=== PATIENT | female | born 1990 | race Caucasian/White ===

== ENCOUNTER → 2017-07-10 18:13 | Outpatient (CLI) | payer MEDICAID, SELFPAY ==
[2017-07-10 21:00] LABS: Chlamydia Trachomatis by PCR Negative (Negative); Neisserai gonorrhoeae by PCR Negative (Negative); Probe Check PASS; Sample Adequacy Control PASS; Specimen Processing Control PASS
[2017-07-18 11:13] LABS: HPV HC, High Risk Negative (Negative)
[2017-07-18 11:14] LABS: HPV Reflexed? YES, CHARGE PATIENT
== END ==
PROVIDERS: Visit Provider Obstetrics & Gynecology
DX: Z12.4 Encounter for screening for malignant neoplasm of cervix (principal); Z11.3 Encounter for screening for infections with a predominantly sexual mode of transmission
CPT/HCPCS: 87491; 87591; 87624; 88175; G0145

== ENCOUNTER → 2017-07-24 14:48 | Outpatient (CLI) | payer MEDICAID, SELFPAY ==
[2017-07-24 15:37] LABS: Color, Urine Yellow (Yellow); Glucose, Dipstick Normal (Normal); Ketone-Dipstick Negative (Negative); Leukocyte Esterase-Dipstick 500 /ul (Negative); Nitrite-Dipstick Negative (Negative); Occult Blood-Urine Negative /ul (Negative); Protein-Dipstick Negative (Negative); Urine Bilirubin Dipstick Negative (Negative); Urine Clarity Cloudy (Clear); Urine Urobilinogen Normal (Normal); Urine pH 6.5 (5.0 - 8.0)
[2017-07-24 16:00] LABS: Absolute Neutrophil Count 6.3 X10^3/uL (2.0-7.7); Basophil# 0.01 X10^3/uL; Basophil% 0.1 % (0-1); Eosinophil# 0.24 X10^3/uL; Eosinophils% 2.7 % (0-5); Hematocrit 34.3 % (37-47); Hemoglobin 11.8 g/dl (12.0-15.0); Lymphocyte % 20.5 % (19-41); Mean Corp Hgb Conc 34.4 g/gl (32-36); Mean Platelet Vol. 9.4 fl (6.2-12.0); Monocyte# 0.46 X10^3/uL; Monocyte% 5.2 % (0-10); Neutrophil # 6.26 X10^3/uL (2.7-7.7); Neutrophil % 71.4 % (47-70); Platelet Count 222 K/mm3 (150-450); RBC Distribution Width CV 12.4 % (11.6-14.6); RBC Distribution Width SD 40.3 fl (35.1-43.9); Red Blood Count 3.81 M/mm3 (4.2-5.4); White Blood Count 8.8 K/mm3 (4.4-11.0)
[2017-07-24 16:03] LABS: POSITIVE COUNT NO; POSITIVE DIFFERENTIAL NO; POSITIVE MORPHOLOGY NO
[2017-07-24 16:12] LABS: Thyroid Stim Hormone (TSH) 1.27 uIU/mL (0.358-3.74)
[2017-07-24 16:34] LABS: Amphetamine Urine VISTA NEGATIVE (<1000 ng/mL); Barbiturate Urine VISTA NEGATIVE (< 200 ng/mL); Benzodiazepine Urine VISTA NEGATIVE (< 200 ng/mL); Cocaine Urine VISTA NEGATIVE (< 300 ng/mL); Ecstacy Urine VISTA NEGATIVE (< 500 ng/mL); Methadone Urine VISTA NEGATIVE (< 300 ng/mL); PCP Urine VISTA NEGATIVE (< 25 ng/mL); THC Urine VISTA NEGATIVE (< 50 ng/mL); Vista UDS pH Range 6
[2017-07-24 16:37] LABS: COTININE Drug Screen Positive (<200 ng/mL)
[2017-07-24 16:58] LABS: HIV - WCH Non-Reactive (Nonreactive); Rubella IgG 101.7 IU/mL
[2017-07-27 14:07] LABS: HCV Quant. RNA PCR 124000 IU/mL (.)
[2017-07-27 14:52] LABS: HCV log 10 5.093 (.); HEPATITIS B SURFACE AG Negative (Negative); Hep C Antibodies >11.0 s/co ratio (0.0-0.9)
[2017-07-31 03:11] LABS: Prenatal RPR NONREACTIVE (NONREACTIVE)
== END ==
PROVIDERS: Visit Provider Obstetrics & Gynecology
DX: Z34.81 Encounter for supervision of other normal pregnancy, first trimester (principal)
CPT/HCPCS: 36415; 80307; 81002; 84443; 85025; 86703; 86762; 86803; 87340; 87522

== ENCOUNTER → 2017-10-15 14:06 | Outpatient (CLI) | payer MEDICAID, SELFPAY ==
[2017-10-15 15:23] LABS: Hematocrit 31.7 % (37-47); Mean Corp Hgb Conc 34.7 g/gl (32-36); Mean Corpuscular Hgb 32.5 pg (27.0-32.0); Mean Corpuscular Volume 93.8 fL (81-99); Platelet Count 218 K/mm3 (150-450); RBC Distribution Width CV 12.4 % (11.6-14.6); Red Blood Count 3.38 M/mm3 (4.2-5.4); White Blood Count 10.2 K/mm3 (4.4-11.0)
[2017-10-15 15:26] LABS: Scan Indicated on CBC? Y/N NO
[2017-10-15 15:37] LABS: Glucose Challenge Gest 1H 50g 85 mg/dL (70-140)
== END ==
PROVIDERS: Visit Provider Obstetrics & Gynecology
DX: Z36.83 Encounter for fetal screening for congenital cardiac abnormalities (principal)
CPT/HCPCS: 36415; 82950; 85027

== ENCOUNTER → 2017-12-29 16:21 | Outpatient (CLI) | payer MEDICAID, SELFPAY ==
[2017-12-29 18:37] LABS: Group B Strep DNA By PCR Negative (Negative); Internal Control PASS; Probe Check PASS; Specimen Processing Control PASS
== END ==
PROVIDERS: Visit Provider Obstetrics & Gynecology
DX: Z36.85 Encounter for antenatal screening for Streptococcus B (principal)
CPT/HCPCS: 87081; 87653

== ENCOUNTER 2018-01-03 17:30 | Outpatient (CLI) | payer MEDICAID, SELFPAY ==
[2018-01-03 18:09] VITALS: BMI 25.1
--- NOTE | 2018-01-04 10:54 | OB.TRI.NOTE ---
History of Present Illness Was patient seen by the physician?: No Reason For Visit: R/O LABOR Date of Service: 01/03/18 Final ROLA: 01/08/18 Final ROLA Source: US <20 weeks Gestational age: 39 Weeks and 2 Days History of Present Illness: 39+ week intrauterine presents with some contractions to rule out labor. care remarkable for bipolar disorder, cutting disorder, known hepatitis C. Allergies azithromycin Allergy (Verified 04/19/14 10:02) Rash vancomycin Allergy (Verified 04/19/14 10:02) Rash also gets red man syndrome NST - FHR Rate Baby A NST Reactive:: Yes FHR Category:: Category I Impression/Plan 39+ week intrauterine with false labor. No change in cervix after monitoring for several hours. Released to home with routine follow-up and care. To return if contractions increase in frequency or intensity.
== END 2018-01-03 19:00 | disposition home or self-care (01) ==
LOC: WPOUT 17:54 → WP 17:55
PROVIDERS: Visit Provider Obstetrics & Gynecology
DX: O47.1 False labor at or after 37 completed weeks of gestation (principal); Z3A.39 39 weeks gestation of pregnancy
CPT/HCPCS: 59025; 59050; 99218; G0378

== ENCOUNTER 2018-01-13 07:55 | Inpatient (IN) | payer MEDICAID, SELFPAY ==
[2018-01-13 08:05] VITALS: BMI 24.8
[2018-01-13] MEDS: Lactated Ringers 1,000 ML 50 ML IV ×2 (08:25→11:33)
[2018-01-13 08:46] LABS: Hematocrit 34.9 % (37-47); Mean Corp Hgb Conc 34.4 g/gl (32-36); Mean Corpuscular Hgb 32.3 pg (27.0-32.0); Mean Corpuscular Volume 94.1 fL (81-99); Mean Platelet Vol. 10.2 fl (6.2-12.0); Platelet Count 236 K/mm3 (150-450); RBC Distribution Width SD 42.5 fl (35.1-43.9); Red Blood Count 3.71 M/mm3 (4.2-5.4); Scan Indicated on CBC? Y/N NO; White Blood Count 9.4 K/mm3 (4.4-11.0)
[2018-01-13] MEDS: Oxytocin 30 units/NS 500 ml 30 UNITS/500 ML IV.SOLN IV (09:23)
--- NOTE | 2018-01-13 12:15 | PCM.PN.OB ---
Subjective: Feeling contractions more strongly. Objective: Afeb VSS - Physical Exam Abdomen: Gravid, Appropriate for Gestational Age Extremities: No edema Psych/Mental Status: Normal Affect Comment: CE 5cm/50%/-2 Weight: 149 lb 7.574 oz Body Mass Index (BMI) 24.8 Intake and Output for Last 24 Hours 01/11/18 01/12/18 01/13/18 23:59 23:59 23:59 Output Total 700 / 700 Balance -700 / -700 Laboratory Tests Past 24 Hrs 01/13/18 01/13/18 08:25 08:25 WBC 9.4 RBC 3.71 L Hgb 12.0 Hct 34.9 L MCV 94.1 MCH 32.3 H MCHC 34.4 RDW 13.0 RDW Differential 42.5 Plt Count 236 MPV 10.2 Blood Type A POSITIVE Antibody Screen NEGATIVE Medical Necessity - Tobacco Use Smoking Status: Current every day smoker Assessment/Plan Making progress in labor. FHR tracing reassuring. Can have epidural if desires.
[2018-01-13] MEDS: fentaNYL-bupivacaine (epidural) 100 ML BAG EPIDURAL (12:56)
[2018-01-13] MEDS: Oxytocin 30 units/NS 500 ml 30 UNITS/500 ML IV.SOLN 334 UNITS IV (15:20)
[2018-01-13] MEDS: Oxytocin 30 units/NS 500 ml 30 UNITS/500 ML IV.SOLN 167 UNITS IV (15:50)
--- NOTE | 2018-01-13 17:11 | PCM.OB.VAG ---
Vaginal Delivery Maternal Presentation: Elective Induction 40w5d ega admitted for induction of labor Method of Induction: Pitocin Amniotic Membrane Rupture Type: Artificial Rupture of Membrane time: 0830 Amniotic Fluid Description: Clear Final ROLA: 01/08/18 Final ROLA Source: US <20 weeks Gestational age: 40 Weeks and 5 Days Date of Procedure: 01/13/18 Pre-Operative Diagnosis: Labor Post-Operative Diagnosis: same Surgery/ Procedure Performed: Spontaneous Vaginal Delivery Anesthesiologist: Kyle Raymundo Type of Anesthesia: Epidural Description of Procedure: Progressed to fully dilated then pushed over two contractions to deliver a live male . Delayed cord clamping was employed. At delivery the nose and mouth were suctioned. The cord was clamped and cut and baby placed on mom's chest for skin to skin. APGARS were 9/9. The placenta was delivered spontaeously intact with a centrally located 3VC. The uterus contracted well. Inspection revealed an intact cervix, upper and lower vagina and perineum. Presentation: Vertex Placental Delivery Description: Spontaneous Placenta Disposition: [facility] Percentage of Placenta Abruption: 0 Cord Vessel Description: 3 Vessels Nuchal Cord Compression: Without compression Cord Entanglement: Around neck x 1, loose Drain: Mcgraw to straight drain Estimated Blood Loss: 300cc Infant A gender: Male (1 minute): 9 (5 minute): 9 Episiotomy Description: None Laceration: None Medications given after delivery: IV Pitocin Complications: None
--- NOTE | 2018-01-13 17:18 | DCINST_ITS ---
Discharge Diet: No Restrictions Discharge Activity: Return to Normal Activity, May Drive, May Shower Return to work on:: 03/01/18 May shower in (days): 0 May resume sexual activity in: 4-6 weeks Call your doctor if your incision/area has: Sudden Increased Bleeding, Increased Pain/ Swelling, Foul Smelling Discharge Call your doctor if you observe: Fever of 101 or Higher, Inability to urinate, Inability to have a bowel movement, Using more than one pad per hour, Shortness of breath, Fainting spells, Chest pain, Calf discomfort, Uncontrolled pain Cleanse incision/area with: Soap & Water Additional Instructions: If you experience any of the following, contact your healthcare provider. * Bleeding that soaks a pad every hour for 2 hours * Fever 100.4 or higher * Unrelieved incision or abdominal pain * Swelling, redness, discharge or bleeding from your incision or episiotomy site * Your incision begins to separate * Problems urinating (including inability to urinate or burning while urinating). * Visual changes * Severe headache * Flu-like symptoms * Pain or redness in one of both of your breasts * Pain, warmth, tenderness or swelling in your legs, especially the calf area * Frequent nausea and vomiting * Symptoms of depression or anxiety If you experience any of the following, call 911 or go to the nearest Emergency Room. * Chest pain * Problems breathing * Seizure activity * Partial or complete paralysis of a body part, slurred speech, weakness or drooping of the face, or a sudden inability to walk or hold your balance Allergies/Adverse Reactions: Allergies azithromycin Allergy (Verified 01/13/18 08:07) Rash ceftriaxone [From Rocephin] Allergy (Verified 01/13/18 08:07) Hives vancomycin Allergy (Verified 01/13/18 08:07) Rash also gets red man syndrome Medications to take at Discharge Ferrous Gluconate 324 mg PO DAILY@1200 tablet 01/13/18 Ferrous Gluconate 325 mg PO DAILY 01/13/18 Folic Acid 1 mg PO DAILY 01/13/18 Ibuprofen 600 mg PO 4X/DAY #30 tab 01/13/18 Vits [Prenatabs FA ] 1 tablet PO DAILY@1200 01/13/18 The following prescriptions were given: Ibuprofen 600 mg PO 4X/DAY #30 tab Please Follow Up With: Alessio No MD When: 6 weeks Primary Care Physician: Care Physician,No Primary [Primary Care Provider] - Test Results: Test results from this visit will be discussed in further detail at your follow- up appointment, if applicable. Proposed Discharge Date: 01/15/18
[2018-01-13 17:57] VITALS: BP 107/66; PULSE 88; RESP 16; TEMP 36.8
[2018-01-13] MEDS: Acetaminophen 500 MG Tablet 1000 MG PO (19:54)
[2018-01-13 20:38] VITALS: BP 107/70; PULSE 89; RESP 16; TEMP 36.8; O2SAT 98
[2018-01-13] MEDS: Ibuprofen 600 MG Tablet PO (21:58)
[2018-01-14 00:20] VITALS: BP 102/6; PULSE 87; RESP 16; TEMP 36.4; O2SAT 98
--- NOTE | 2018-01-14 00:37 | NURSING ---
Patient reports passing clot bigger than an egg and flushed it down the toilet. Patient's vital signs within normal limits, bleeding appropriate and fundus firm and -1. Patient educated to let nurse see clot before flushing next time. Patient up to bathroom again and did not pass clot or have excessive bleeding.
[2018-01-14] MEDS: Acetaminophen 500 MG Tablet 1000 MG PO ×2 (04:13→12:09)
[2018-01-14 04:15] VITALS: BP 109/68; PULSE 87; RESP 16; TEMP 36.4; O2SAT 98
[2018-01-14 08:11] LABS: Hematocrit 33.2 % (37-47); Hemoglobin 11.5 g/dl (12.0-15.0); Mean Corp Hgb Conc 34.6 g/gl (32-36); Mean Corpuscular Hgb 32.8 pg (27.0-32.0); Mean Corpuscular Volume 94.6 fL (81-99); Platelet Count 217 K/mm3 (150-450); RBC Distribution Width CV 12.9 % (11.6-14.6); RBC Distribution Width SD 42.5 fl (35.1-43.9); Red Blood Count 3.51 M/mm3 (4.2-5.4); White Blood Count 9.2 K/mm3 (4.4-11.0)
[2018-01-14 08:14] LABS: Scan Indicated on CBC? Y/N NO
--- NOTE | 2018-01-14 08:32 | PCM.PN.OB ---
Subjective: Some cramping. Bleeding light. Bottle feeding. Objective: Afeb VSS Hgb stable PP day#1. - Physical Exam General: Alert, Oriented x3, Cooperative, No apparent distress Lungs: Clear to auscultation, Normal air movement Cardiovascular: Regular rate, Regular Rhythm Abdomen: Soft, Non Tender, Non-Distended, - - Fundus firm nontender Extremities: No edema Skin: No rashes Neurological: Neuro grossly intact Psych/Mental Status: Normal Affect Comment: Lochia light Vital Signs Temp Pulse Resp BP Pulse Ox 97.5 F L 87 16 109/68 98 01/14/18 04:15 01/14/18 04:15 01/14/18 04:15 01/14/18 04:15 01/14/18 04:15 Oxygen Delivery Method Room Air Weight: 149 lb 7.574 oz Body Mass Index (BMI) 24.8 Intake and Output for Last 24 Hours 01/12/18 01/13/18 01/14/18 23:59 23:59 23:59 Intake Total 3462 / 3462 Output Total 2100 / 2100 Balance 1362 / 1362 Laboratory Tests Past 24 Hrs 01/13/18 01/13/18 01/14/18 08:25 08:25 07:55 WBC 9.4 9.2 RBC 3.71 L 3.51 L Hgb 12.0 11.5 L Hct 34.9 L 33.2 L MCV 94.1 94.6 MCH 32.3 H 32.8 H MCHC 34.4 34.6 RDW 13.0 12.9 RDW Differential 42.5 42.5 Plt Count 236 217 MPV 10.2 10.0 Blood Type A POSITIVE Antibody Screen NEGATIVE Medical Necessity - Tobacco Use Smoking Status: Current every day smoker Assessment/Plan Doing well on PP day#1. Continue routine PP care. Anticipate discharge home tomorrow.
[2018-01-14] MEDS: Ibuprofen 600 MG Tablet PO ×2 (08:35→19:48)
[2018-01-14] MEDS: Ferrous Gluconate 324 MG Tablet PO (08:36)
[2018-01-14] MEDS: Folic Acid 1 MG Tablet PO (08:36)
[2018-01-14 09:43] VITALS: BP 106/75; PULSE 91; RESP 20; TEMP 36.5; O2SAT 100
[2018-01-14] MEDS: Prenatal Vits Tablet 1 TABLET PO (11:43)
[2018-01-14 11:49] VITALS: BP 117/83; PULSE 74; RESP 20; TEMP 36.3; O2SAT 99
[2018-01-14 15:41] VITALS: BP 117/83; PULSE 74; RESP 20; TEMP 36.3; O2SAT 99
[2018-01-14 19:55] VITALS: BP 109/73; PULSE 79; RESP 16; TEMP 36.8; O2SAT 95
[2018-01-15 02:10] VITALS: BP 106/73; PULSE 88; RESP 18; TEMP 36.9; O2SAT 97
--- NOTE | 2018-01-15 08:02 | PCM.PN.OB ---
Subjective: No sp[eicifc complaints. Bleeding light. Objective: Afeb VSS - Physical Exam General: Alert, Oriented x3, Cooperative, No apparent distress Lungs: Clear to auscultation, Normal air movement Cardiovascular: Regular rate, Regular Rhythm Abdomen: Soft, Non Tender, Non-Distended Extremities: No edema Skin: No rashes Psych/Mental Status: Normal Affect Comment: Lochia light Vital Signs Temp Pulse Resp BP Pulse Ox 98.4 F 88 18 106/73 97 01/15/18 02:10 01/15/18 02:10 01/15/18 02:10 01/15/18 02:10 01/15/18 02:10 Oxygen Delivery Method Room Air Weight: 149 lb 7.574 oz Body Mass Index (BMI) 24.8 Intake and Output for Last 24 Hours 01/13/18 01/14/18 01/15/18 23:59 23:59 23:59 Intake Total 3462 / 3462 Output Total 2100 / 2100 Balance 1362 / 1362 Laboratory Tests Past 24 Hrs 01/14/18 07:55 WBC 9.2 RBC 3.51 L Hgb 11.5 L Hct 33.2 L MCV 94.6 MCH 32.8 H MCHC 34.6 RDW 12.9 RDW Differential 42.5 Plt Count 217 MPV 10.0 Medical Necessity - Tobacco Use Smoking Status: Current every day smoker Assessment/Plan Doing well on PP day#2. Cleared for discharge home today. Home going instructions and warnings given.
--- NOTE | 2018-01-15 08:03 | PCM.DC.SUM ---
Discharge Date and Diagnosis Date of Admission: 01/13/18 Date of Discharge: 01/15/18 - Primary Discharge Diagnosis S/P Hospital Course and Treatment Operations: None Procedures: - - Pitocin induction of labor, epidural, Summary of Care Provided: The patient is a 27 year old F [admitted for induction of labor at 40w5d ega. Progressed to FD pushed for a short time to deliver a live without complication. Discharged home on PP day#2.] - Physical Exam Vital Signs Temp Pulse Resp BP Pulse Ox 98.4 F 88 18 106/73 97 01/15/18 02:10 01/15/18 02:10 01/15/18 02:10 01/15/18 02:10 01/15/18 02:10 Oxygen Delivery Method Room Air Weight: 149 lb 7.574 oz Body Mass Index (BMI) 24.8 Intake and Output for Last 24 Hours 01/13/18 01/14/18 01/15/18 23:59 23:59 23:59 Intake Total 3462 / 3462 Output Total 2100 / 2100 Balance 1362 / 1362 Laboratory Tests Past 24 Hrs 01/14/18 07:55 WBC 9.2 RBC 3.51 L Hgb 11.5 L Hct 33.2 L MCV 94.6 MCH 32.8 H MCHC 34.6 RDW 12.9 RDW Differential 42.5 Plt Count 217 MPV 10.0 Discharge Diet: No Restrictions Discharge Activity: Return to Normal Activity, May Drive, May Shower Return to work on:: 03/01/18 May shower in (days): 0 May resume sexual activity in: 4-6 weeks Call your doctor if your incision/area has: Sudden Increased Bleeding, Increased Pain/ Swelling, Foul Smelling Discharge Call your doctor if you observe: Fever of 101 or Higher, Inability to urinate, Inability to have a bowel movement, Using more than one pad per hour, Shortness of breath, Fainting spells, Chest pain, Calf discomfort, Uncontrolled pain Cleanse incision/area with: Soap & Water Home Medications: Medications to take at Discharge Ferrous Gluconate 324 mg PO DAILY@1200 tablet 01/13/18 Ferrous Gluconate 325 mg PO DAILY 01/13/18 Folic Acid 1 mg PO DAILY 01/13/18 Ibuprofen 600 mg PO 4X/DAY #30 tab 01/13/18 Vits [Prenatabs FA ] 1 tablet PO DAILY@1200 01/13/18 Following Prescrptions Were Given to Patient: Ibuprofen 600 mg PO 4X/DAY #30 tab Primary Care Physician: Care Physician,No Primary [Primary Care Provider] - Please Follow Up With: Alessio No MD When: 6 weeks Disposition: Home Minutes spent on discharge:: 15 Patient Condition:: Good Medical Necessity - Tobacco Use Smoking Status: Current every day smoker Meaningful Use Info Meaningful Use Diagnoses (Choose all that apply): None applicable
[2018-01-15 08:27] VITALS: BP 115/74; PULSE 101; RESP 16; TEMP 36.9; O2SAT 97
[2018-01-15] MEDS: Acetaminophen 500 MG Tablet 1000 MG PO (09:52)
[2018-01-15] MEDS: Folic Acid 1 MG Tablet PO (09:52)
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
--- NOTE | 2018-01-15 13:40 | CASEMGMT ---
Social Work Labor and Delivery Unit Call to [facility] at [phone] and spoke with Kiah in the intake department. Report to Kiah about of baby, informing Kiah of said agency being otherwise involved with this family. Brief maternal and histories provided, including reason for social work referral in the hospital and due to potential risk factors/safety issues for this family a referral being made to children services to assure that said agency aware of going home to community today. Reported that MOB is not in any current treatment for mental health but reports likely intent to start family counseling. Reported that MOB had late care. Reported that MOB did have a negative drug screen this (a strength present for this family). Reported that FOB did transport MOB and baby home today and that MOB stating cleared this with the malt roaster. Kiah will report information provided and let ongoing worker know of call by this rewriter. No other services requested or indicated for this family. -SHANTANU García, VP DIGITAL MARKETING
== END 2018-01-15 12:30 | disposition home or self-care (01) | DRG 560 ==
PROVIDERS: Admitting Provider Obstetrics & Gynecology; Referring Provider Obstetrics & Gynecology; Visit Provider Obstetrics & Gynecology
DX: O48.0 Post-term pregnancy (principal); Z3A.40 40 weeks gestation of pregnancy; O99.02 Anemia complicating childbirth; O99.324 Drug use complicating childbirth; F11.90 Opioid use, unspecified, uncomplicated; D51.9 Vitamin B12 deficiency anemia, unspecified; O98.42 Viral hepatitis complicating childbirth; B18.2 Chronic viral hepatitis C; O99.334 Smoking (tobacco) complicating childbirth; O69.81X0 Labor and delivery complicated by cord around neck, without compression, not applicable or unspecified; Z37.0 Single live birth
CPT/HCPCS: 59025; 59050; 85027; 86850; 86900; 99218; J7120; G0378

== ENCOUNTER → 2018-04-16 12:10 | Outpatient (CLI) | payer MEDICAID, SELFPAY | PROVIDERS: Referring Provider Obstetrics & Gynecology; Visit Provider Obstetrics & Gynecology | DX: Z53.9 Procedure and treatment not carried out, unspecified reason (principal) ==

== ENCOUNTER → 2018-10-07 | Outpatient (CLI) | payer MEDICAID, SELFPAY ==
[2018-10-07 18:58] LABS: Chlamydia Trachomatis by PCR Negative (Negative); Neisserai gonorrhoeae by PCR Negative (Negative); Probe Check PASS; Sample Adequacy Control PASS; Specimen Processing Control PASS
== END | disposition home or self-care (01) ==
LOC: LABSPEC 15:20
PROVIDERS: Visit Provider Obstetrics & Gynecology
DX: Z11.3 Encounter for screening for infections with a predominantly sexual mode of transmission (principal)
CPT/HCPCS: 87491; 87591

== ENCOUNTER → 2018-10-14 | Outpatient (CLI) | payer MEDICAID, SELFPAY ==
[2018-10-14 17:17] LABS: Absolute Lymphocyte Count 2.07 X10^3/uL (0.83-4.51); Absolute Neutrophil Count 7.1 X10^3/uL (2.0-7.7); Basophil# 0.02 X10^3/uL; Basophil% 0.2 % (0-1); Eosinophil# 0.25 X10^3/uL; Eosinophils% 2.5 % (0-5); Hematocrit 34.4 % (37-47); Hemoglobin 11.8 g/dL (12.0-15.0); Lymphocyte # 2.07 X10^3/ul (4.0); Lymphocyte % 20.8 % (19-41); Mean Corp Hgb Conc 34.3 g/dL (32-36); Mean Corpuscular Volume 93.2 fL (81-99); Mean Platelet Vol. 9.5 fl (6.2-12.0); Monocyte# 0.47 X10^3/uL; Monocyte% 4.7 % (0-10); NRBC Flagged by Analyzer 0 % (0-5); Neutrophil % 71.4 % (47-70); Platelet Count 231 K/mm3 (150-450); RBC Distribution Width CV 12.1 % (11.6-14.6); RBC Distribution Width SD 40.8 fl (35.1-43.9); Red Blood Count 3.69 M/mm3 (4.2-5.4)
[2018-10-14 17:42] LABS: Amphetamine Urine VISTA NEGATIVE (<1000 ng/mL); Barbiturate Urine VISTA NEGATIVE (< 200 ng/mL); Benzodiazepine Urine VISTA NEGATIVE (< 200 ng/mL); Cocaine Urine VISTA NEGATIVE (< 300 ng/mL); Ecstacy Urine VISTA NEGATIVE (< 500 ng/mL); Methadone Urine VISTA NEGATIVE (< 300 ng/mL); PCP Urine VISTA NEGATIVE (< 25 ng/mL); THC Urine VISTA NEGATIVE (< 50 ng/mL); Vista UDS pH Range 6
[2018-10-14 17:52] LABS: Color, Urine Yellow (Yellow); Glucose, Dipstick Normal (Normal); Ketone-Dipstick Negative (Negative); Leukocyte Esterase-Dipstick Negative /ul (Negative); Nitrite-Dipstick Negative (Negative); Occult Blood-Urine Negative /ul (Negative); Protein-Dipstick Negative (Negative); Specific Gravity, Urine 1.015 (1.002-1.030); Urine Bilirubin Dipstick Negative (Negative); Urine Clarity Clear (Clear); Urine Urobilinogen Normal (Normal)
[2018-10-14 18:01] LABS: Thyroid Stim Hormone (TSH) 1.92 uIU/mL (0.358-3.74)
[2018-10-15 10:12] LABS: HIV - WCH Non-Reactive (Nonreactive); Hepatitis B Surface Antigen Non-Reactive (Nonreactive); Rubella IgG 90.8 IU/mL
[2018-10-15 10:26] LABS: Hepatitis C Antibody REACTIVE (Nonreactive)
[2018-10-16 09:27] LABS: Prenatal RPR NONREACTIVE (NONREACTIVE)
== END | disposition home or self-care (01) ==
LOC: WOBLAB 16:42
PROVIDERS: Visit Provider Obstetrics & Gynecology
DX: Z34.82 Encounter for supervision of other normal pregnancy, second trimester (principal)
CPT/HCPCS: 36415; 80307; 81002; 84443; 85025; 86703; 86762; 86803; 87340

== ENCOUNTER → 2018-10-19 | Outpatient (CLI) | payer MEDICAID, SELFPAY | END | disposition home or self-care (01) | PROVIDERS: Visit Provider Obstetrics & Gynecology | DX: B18.2 Chronic viral hepatitis C (principal) ==

== ENCOUNTER 2020-08-24 13:30 | Emergency (ER) | payer MEDICAID, SELFPAY ==
[2020-08-24 13:31] VITALS: BP 147/74; PULSE 106; RESP 16; TEMP 36.3; O2SAT 97; BMI 25.0
--- NOTE | 2020-08-24 13:45 | RAD_ITS ---
STUDY: X-RAY - LEFT FOOT CLINICAL: Female, 30 years old. STEPPED ON NAIL TECHNIQUE: 3 view(s) of the foot. COMPARISON: None. FINDINGS: Normal talus, calcaneus, and tarsal bones. Normal visualized subtalar, talonavicular, calcaneocuboid, tarsal and tarsometatarsal articulations. Normal metatarsi. Normal metatarsophalangeal joint of the great toe. Normal tibial and fibular sesamoid bones. Normal interphalangeal joint of the great toe. Normal phalanges of the great toe. Normal second through fifth metatarsophalangeal joints. Normal interphalangeal joints and phalanges of the lesser toes. The soft tissue structures are unremarkable. RAD/Foot min 3 Views IMPRESSION: Normal x-ray examination of the foot. Electronically Signed: Narinder Pantoja MD at 14:11 EDT , Service support ,
--- NOTE | 2020-08-24 15:36 | ED.VIS.LOWEX ---
HPI History of Present Illness Chief Complaint: Lower Extremity Injury Informant: patient Narrative Narrative: 30-year-old female states that earlier today she was carrying wood to the wood pile when the pallet broke and she went through the palate. She sustained plantar puncture wounds to the left foot. She notes a puncture wound along the ball of the foot at the level of the first metatarsal. She states that that was bleeding significantly. Her daughter stated that there is another injury laterally. The nail went through her shoe. She was not wearing socks. Tetanus Immunization: Unknown [facility] Medical History Hepatitis C Home Medications sulfamethoxazole-trimethoprim 1 tab PO BID #14 tablet 08/24/20 [Rx Last Taken Unknown] Allergy/AdvReac Type Severity Reaction Status Date / Time azithromycin Allergy Rash Verified 08/24/20 13:31 ceftriaxone [From Rocephin] Allergy Hives Verified 08/24/20 13:31 vancomycin Allergy Rash Verified 08/24/20 13:31 Social History (Updated 08/24/20 @ 15:[address] Roger Sorto DO) Smoking Status: Current every day smoker tobacco type: cigarettes substance use type: does not use ROS ROS ED Constitutional Constitutional ED: Denies chills or weight loss Eyes Eyes: Denies change in vision or diplopia ENT ENT ED: Denies ear pain, rhinorrhea or sore throat Cardiovascular Cardiovascular: Denies chest pain, orthopnea, palpitations or racing heartbeat Respiratory/Chest Respiratory/Chest: Denies cough, dyspnea or orthopnea Gastrointestinal Gastrointestinal: Denies abdominal pain, diarrhea, nausea or vomiting Genitourinary Genitourinary ED: Denies dysuria, hematuria or urinary frequency Musculoskeletal Musculoskeletal: Denies arthralgias or myalgias Integumentary Denies abscess or rash Neurologic Neurologic: Reports other Details: History of present illness ; Denies headache(s) or weakness Psychiatric Psychiatric: Denies anxiety, depression, suicidal ideation or suicidal thoughts Endocrine Endocrinology: Denies polydipsia, polyphagia or polyuria Allergic/Immunologic Allergic/Immunologic ED: Denies mouth swelling, tongue swelling or urticaria EXAM Physical Exam Const Vital Signs: 08/24/20 13:31 Temperature 97.3 F L Temperature Source Temporal Pulse Rate 106 H Respiratory Rate 16 Blood Pressure 147/74 H Blood Pressure Mean 98 Pulse Ox 97 Oxygen Delivery Method Room Air Positive well nourished and well developed General Appearance ED: well developed HEENT Reports normocephalic, head/scalp atraumatic and moist mucous membranes Eyes PERRL and EOMs intact bilaterally Neck no lymphadenopathy, supple and no JVD Resp normal respiratory effort and clear to auscultation bilaterally Cardio regular rate, regular rhythm and no murmurs GI normal to inspection, nondistended, normoactive bowel sounds and non-tender Palpation: soft Back/Spine no CVA tenderness and normal ROM Extremity Extremity Narrative: There is tenderness to palpation along the plantar puncture wound along with some mild swelling over the ball of the first metatarsal. No active bleeding. No significant erythema. There is a superficial linear abrasion near the webspace but still in the plantar surface of the fourth and fifth digits. General Extremety ED: Negative for edema General Extremity: Negative for edema Neuro oriented x3 and CN's II-XII intact bilaterally Sensorium / Orientation: alert Motor Exam: strength 5/5 throughout Psych mental status grossly normal Mood & Affect: Negative for depressed or tearful Skin no rashes or lesions noted and no wounds MDM MDM MDM Narrative Medical decision making narrative: X-rays were obtained and upon my interpretation did not reveal a foreign body. Radiology concurs. Wound was washed dressed. She will be placed on Bactrim. Tetanus will be updated. Monitor for signs of infection return if worsening or concerns Radiography Diagnostic Testing: Radiology Impression Foot X-Ray 08/24/20 13:45 IMPRESSION: Normal x-ray examination of the foot. Electronically Signed: Narinder Pantoja MD at 14:11 EDT , Service support , Discharge Plan Triage Chief Complaint: Lower Extremity Injury ED Provider: Roger Sorto Dx/Rx/DC Orders Clinical Impression: Puncture wound of plantar aspect of left foot Instructions: ED Puncture Wound (Foot) Prescriptions: New sulfamethoxazole-trimethoprim [sulfamethoxazole-trimethoprim] 1 TABLET tablet 1 tab PO BID Qty: 14 RF: 0 Primary Care Provider: Care Physician,No Primary Referrals: Katharine Enriquez DPM [STAFF PHYSICIAN] - 1 Week if not improving Care Physician,No Primary [Primary Care Provider] - Disposition Disposition: Home, self care
[2020-08-24] MEDS: Diphth,Pertuss(Acell),Tet Vac 0.5 ML Vial IM (15:47)
== END 2020-08-24 16:04 | disposition home or self-care (01) ==
PROVIDERS: Emergency Provider Emergency Medicine
DX: S91.332A Puncture wound without foreign body, left foot, initial encounter (principal); F17.210 Nicotine dependence, cigarettes, uncomplicated; Z23 Encounter for immunization; X58.XXXA Exposure to other specified factors, initial encounter; Y93.01 Activity, walking, marching and hiking; Y92.89 Other specified places as the place of occurrence of the external cause; Y99.8 Other external cause status
CPT/HCPCS: 73630; 90471; 90715; 99283

== ENCOUNTER 2021-05-18 20:11 | Emergency (ER) | payer MEDICAID, SELFPAY ==
[2021-05-18 20:12] VITALS: BP 122/82; PULSE 102; RESP 16; TEMP 36.4; O2SAT 98; BMI 21.6
--- NOTE | 2021-05-18 20:27 | EDS_ITS ---
HPI <DIEGO LEONCIO - Last Filed: 05/18/21 22:09> HPI - URI History of Present Illness Chief Complaint: Sore Throat Informant: patient Onset/Context/Timing Onset: Days (3) Context: Gradual Onset Timing: Continuous Quality: Burning Location: Throat Current Severity: 7/10 Worsened by: Swallowing Associated Symptoms Associated Symptoms: Negative for Nasal Congestion, Headache, Sinus Pressure, Myalgias, Nausea, Vomiting and Shortness of Breath Narrative Narrative: Patient presents secondary to sore throat for 3 days. Patient states her children have had similar symptoms. Patient denies difficulty swallowing, fever, or chills. Patient denies pain, but describes burning sensation as 7 out of 10. ROS <DIEGO FANG - Last Filed: 05/18/21 22:09> ROS ED Constitutional Constitutional ED: Denies chills or fever(s) Eyes Eyes: Denies blurry vision or change in vision ENT ENT ED: Reports sore throat; Denies ear pain or rhinorrhea Cardiovascular Cardiovascular: Denies chest pain Respiratory/Chest Respiratory/Chest: Denies cough or dyspnea Gastrointestinal Gastrointestinal: Denies abdominal pain, nausea or vomiting Genitourinary Genitourinary ED: Denies dysuria or hematuria Musculoskeletal Musculoskeletal: Denies myalgias or neck pain Integumentary Denies rash Neurologic Neurologic: Denies headache(s) or weakness Allergic/Immunologic Allergic/Immunologic ED: Denies tongue swelling PFSH <DIEGO FANG - Last Filed: 05/18/21 22:09> PFSH Medical History Hepatitis C Allergy/AdvReac Type Severity Reaction Status Date / Time azithromycin Allergy Rash Verified 05/18/21 20:13 ceftriaxone [From Rocephin] Allergy Hives Verified 05/18/21 20:13 vancomycin Allergy Rash Verified 05/18/21 20:13 Social History Smoking Status: Current every day smoker tobacco type: cigarettes substance use type: does not use EXAM <DIEGO FANG - Last Filed: 05/18/21 22:09> Physical Exam Const Vital Signs: 05/18/21 20:12 Temperature 97.6 F L Temperature Source Temporal Pulse Rate 102 H Respiratory Rate 16 Blood Pressure 122/82 H Blood Pressure Mean 95 Pulse Ox 98 Oxygen Delivery Method Room Air Positive well nourished and well developed General Appearance ED: well developed HEENT Reports TM's clear and moist mucous membranes normocephalic and atraumatic External Ear: external ears normal Tympanic Membrane ED: Yes TM's clear Throat: tonsils abnormal bilateral (2+ tonsillar enlargement, symmetric, without exudate, uvula midline.) Eyes PERRL and EOMs intact bilaterally Neck no lymphadenopathy and supple Resp normal respiratory effort and clear to auscultation bilaterally Cardio Rate: regular rate Rhythm: regular rhythm GI non-tender Palpation: soft Extremity normal to inspection Neuro oriented x3 Sensorium / Orientation: alert Psych mental status grossly normal Skin Rashes: no rashes <Dr. Marian Jordan MD - Last Filed: 05/18/21 22:38> Physical Exam Const Vital Signs: 05/18/21 20:12 Temperature 97.6 F L Temperature Source Temporal Pulse Rate 102 H Respiratory Rate 16 Blood Pressure 122/82 H Blood Pressure Mean 95 Pulse Ox 98 Oxygen Delivery Method Room Air MDM <DIEGO AWADMELVI - Last Filed: 05/18/21 22:09> [facility] Narrative Medical decision making narrative: Rapid strep obtained. Radiography Diagnostic Testing: Rapid strep negative. Patient will be given dose of IM Kenalog prior to discharge. Patient agreeable to discharge and symptomatic treatment. Patient given return instructions. <Dr. Marian Jordan MD - Last Filed: 05/18/21 22:38> [facility] Treatment and Re-Evaluation Comments:: Patient seen and evaluated with [employer] student. Patient presents with 3- day history of sore throat and a itchy sensation in her throat. No fever or chills. Primary concern is for strep pharyngitis. Patient sitting upright in bed no acute distress. She speaking with strong voice and tolerating secretions well. Head neck examination reveals 2-3+ tonsils, symmetric. Uvula is midline. No exudate noted. Heart is regular rate and rhythm. Lung sounds are clear. Abdomen is soft and nontender. Neuro exam normal. Rapid strep test obtained and negative. Patient was advised that this will be sent for culture. She is given a dose of IM Kenalog to help with edema. She will continue supportive care at home. Discharge Plan Triage Chief Complaint: Sore Throat ED Provider: Marian Jordan Dx/Rx/DC Orders Clinical Impression: Viral pharyngitis Instructions: ED Pharyngitis, Viral Primary Care Provider: Care Physician,No Primary Referrals: Brian Nolen MD [STAFF PHYSICIAN] - 1-2 Weeks Care Physician,No Primary [Primary Care Provider] - Disposition Disposition: Home, Self Care Discharge Date/Time: 05/18/21 21:44
--- NOTE | 2021-05-18 20:36 | CM.ED ---
SW Note Referral Source: Case Find Referral Reason: No Primary Care Physician (PCP) SW reviewed chart and noted that patient has no PCP. SW provided patient with list of [facility] and [facility] Physician List for reference. SW also provided patient with handout ?Where to go When?. No other issues or concerns voiced at this time. SW remains available for any additional needs. Plan: Provided patient with PCP information Manasa ACOSTA
== END 2021-05-18 21:44 | disposition home or self-care (01) ==
PROVIDERS: Emergency Provider Emergency Medicine; Visit Provider Emergency Medicine
DX: J02.8 Acute pharyngitis due to other specified organisms (principal); F17.210 Nicotine dependence, cigarettes, uncomplicated
CPT/HCPCS: 87880; 99281; 99282